=== PATIENT | male | born 1945 | race Two or more races ===

== ENCOUNTER 2023-01-23 17:44 | Emergency (ER) | payer MEDICARE, OTHER ==
[~2023-01-23] VITALS: Ht 165.1 cm; Wt 72.6 kg
[2023-01-23 18:31] LABS: BASOPHILS % (AUTO) 0.3 % (0.0-2.0); EOSINOPHILS % (AUTO) 0.1 % (0.0-6.0); HEMATOCRIT 42 % (39-51); HEMOGLOBIN 13.9 g/dL (13.5-17.5); LYMPHOCYTES % (AUTO) 10.7 % (20.0-44.0); MEAN CORPUSCULAR HGB CONC 33 g/dl (31.0-36.0); MEAN CORPUSCULAR VOLUME 95 fL (80-96); MONOCYTES # (AUTO) 0.5 K/uL (0.1-1.30); NEUTROPHILS # (AUTO) 7.4 K/uL (1.8-8.9); NEUTROPHILS % (AUTO) 82.9 % (43.0-81.0); PLATELET COUNT (AUTO) 167 K/uL (150-450); RED BLOOD CELL COUNT(AUTO) 4.39 MIL/uL (4.5-6.0); WHITE BLOOD COUNT (AUTO) 8.9 K/uL (4.3-11.0)
--- NOTE | 2023-01-23 18:34 | NUR ---
BIB [facility], WALKING,C/O THAT HE HAS BUGS AND TOLD EMS THAT HE IS SUICIDAL
[2023-01-23 18:44] LABS: ALANINE AMINOTRANSFERASE 22 U/L (12-78); ALBUMIN 4.1 g/dL (3.4-5.0); ALKALINE PHOSPHATASE 102 U/L (46-116); ASPARTATE AMINOTRANSFERASE 22 U/L (15-37); BILIRUBIN,DIRECT 0.2 mg/dL (0.0-0.2); BILIRUBIN,TOTAL 1.2 mg/dL (0.2-1.0); CALCIUM, SERUM 9.2 mg/dL (8.5-10.1); CARBON DIOXIDE 30 mmol/L (21-32); CHLORIDE 107 mmol/L (98-107); CREATININE 1.3 mg/dL (0.6-1.3); GLUCOSE 96 mg/dL (74-106); POTASSIUM 3.8 mmol/L (3.5-5.1); SODIUM SERUM 143 mmol/L (136-145); TOTAL PROTEIN, SERUM 7.9 g/dL (6.4-8.2); UREA NITROGEN, BLOOD 17 mg/dL (7-18)
--- NOTE | 2023-01-23 19:43 | NUR ---
urine and covid sent to lab
[2023-01-23 20:47] LABS: ALCOHOL, BLOOD < 3 mg/dL (0-0)
[2023-01-23 21:27] LABS: BILIRUBIN,URINE NEGATIVE (NEGATIVE); COLOR,URINE YELLOW (YELLOW); LEUKOCYTE ESTERASE ,URINE NEGATIVE (NEGATIVE); NITRITE, URINE NEGATIVE (NEGATIVE); PROTEIN,URINE TRACE mg/dl (NEGATIVE); UGLUCOSE NEGATIVE (NEGATIVE); UROBILINOGEN,URINE 0.2 EU/dL (0.2)
[2023-01-23 21:35] LABS: BACTERIA,URINE Few /HPF (None Seen); MUCUS,URINE Few /LPF (None Seen); RBC,URINE NONE SEEN /HPF (0-2); SQUAMOUS EPITHELIAL CELL,UR None Seen /HPF (None Seen); WBC,URINE NONE SEEN /HPF (0-3)
--- NOTE | 2023-01-23 22:50 | NUR ---
[facility] TEAM CALLED FOR PSYCH ELIEL HARRISON ON HER [address]
--- NOTE | 2023-01-23 23:15 | NUR ---
REPORT RECEIVED FROM KATHLEEN BERRY FOR [facility]
[2023-01-24] MEDS ORDERED: LORAZEPAM 1 MG TABLET PO ONE (01:30)
[2023-01-24] MEDS ORDERED: LORAZEPAM 1 MG TABLET ONE (01:34)
--- NOTE | 2023-01-24 13:55 | NUR ---
SERVE LUNCH ATE WITH APPETITE
--- NOTE | 2023-01-24 13:59 | NUR ---
CALLED [phone] KALI RICHARD, NO BED AVAIALBLE AT THIS TIME. WAITING FOR BEDS TO BECOME AVAIALBLE.
--- NOTE | 2023-01-24 15:57 | NUR ---
[facility] [place] [facility] CALLED. [phone], ELIZABETH
[2023-01-24] MEDS ORDERED: OLANZAPINE 5 MG TABLET ONE (18:57)
[2023-01-24] MEDS ORDERED: OLANZAPINE 5 MG TABLET PO ONE (19:00)
--- NOTE | 2023-01-24 19:14 | NUR ---
ACCEPTED AT [facility] UNDER DR JEFFERS NUMBER FOR REPORT [phone], RM [id number] OVERLOCK OPERATOR WILL CALL FOR TRANSPORT ETA.
--- NOTE | 2023-01-24 20:11 | NUR ---
REPORT GIVEN TO DANIA BERRY [facility]
--- NOTE | 2023-01-24 22:13 | NUR ---
SPOKE WITH GRICELDA BAR. TRANSPORT ETA 1 HR
--- NOTE | 2023-01-25 00:53 | NUR ---
REPORT GIVEN TO GUERLINE Pryor/ [facility]
[2023-01-25] MEDS ORDERED: CLONIDINE HCL 0.1 MG TABLET ONE (01:04)
[2023-01-25] MEDS ORDERED: CLONIDINE HCL 0.1 MG TABLET PO ONE (01:30)
--- NOTE | 2023-01-25 02:02 | NUR ---
FOLLOW-UP CALL W/ NURSE AIRFIELD MANAGER ADWOA AT [facility], NOTIFIED HER THAT PATIENT'S EZ=[id number]; STATES THIS IS ACCEPTABLE. GUERLINE W/ [facility] AWARE.
[2023-01-25 02:13] VITALS: BP 156/99
== END 2023-01-25 02:05 | disposition short-term general hospital (02) ==
LOC: ER 18:35
DX: R45.851 Suicidal ideations (principal); I10 Essential (primary) hypertension; Z20.822 Contact with and (suspected) exposure to COVID-19
CPT/HCPCS: 36415; 80048-TC; 80076-TC; 81001; 85025-TC; C9803; G0480